=== PATIENT | male | born 1950 | race Caucasian/White ===

== ENCOUNTER → 2016-08-22 | Outpatient (CLI) | payer BC ==
[2012-10-25 16:15] VITALS: BP 129/75
[~2016-08-22] MED LIST: ATORVASTATIN CA40 MG PO; FENOFIBRATE48 MG PO; FISH OIL500 MG; GLUCOSAMINE & C1 CA1 PO; HUMULIN R100 U/ML SQ; LANTUS100 U/ML SQ; LIPITOR 40MG TA40 MG PO; LISINOPRIL2.5 MG PO; METFORMIN ER500 MG PO; METFORMIN500 MG PO; NOVOLOG FLEX100 U/ML SQ; PRECOSE PO; PRECOSE100 M1 PO; RANITIDINE HCL150 MG PO; SUTENT PO; TRESIBA FL200 UNIT/1 SQ; TRICOR48 MG PO; ZETIA 10MG TAB10 MG PO
== END ==
LOC: RAD 15:47
DX: R10.9 Unspecified abdominal pain (principal)

== ENCOUNTER → 2016-10-24 | Outpatient (CLI) | payer BC ==
[2012-10-25 16:15] VITALS: BP 129/75
== END ==
LOC: LAB 06:26
DX: E11.9 Type 2 diabetes mellitus without complications (principal); E78.2 Mixed hyperlipidemia; D48.1 Neoplasm of uncertain behavior of connective and other soft tissue; N28.9 Disorder of kidney and ureter, unspecified

== ENCOUNTER 2016-11-19 14:34 | Emergency (ER) | payer BC ==
[~2016-11-19] VITALS: Ht 177.8 cm; Wt 88.6 kg
[~2016-11-19 14:34] MED LIST changes: -ATORVASTATIN CA40 MG PO; -FENOFIBRATE48 MG PO; -LISINOPRIL2.5 MG PO; -METFORMIN ER500 MG PO; -NOVOLOG FLEX100 U/ML SQ; -PRECOSE PO; -RANITIDINE HCL150 MG PO; -SUTENT PO; -TRESIBA FL200 UNIT/1 SQ
[2016-11-19] MEDS ORDERED: SUTENT PO (14:42)
[2016-11-19] MEDS ORDERED: LISINOPRIL2.5 MG PO (14:42)
[2016-11-19] MEDS ORDERED: NOVOLOG FLEX100 U/ML SQ (14:42)
[2016-11-19] MEDS ORDERED: PRECOSE PO (14:42)
[2016-11-19] MEDS ORDERED: ATORVASTATIN CA40 MG PO (14:42)
[2016-11-19] MEDS ORDERED: METFORMIN ER500 MG PO (14:43)
[2016-11-19] MEDS ORDERED: TRESIBA FL200 UNIT/1 SQ (14:43)
[2016-11-19] MEDS ORDERED: FENOFIBRATE48 MG PO (14:43)
[2016-11-19] MEDS ORDERED: RANITIDINE HCL150 MG PO (14:43)
[2016-11-19 17:13] VITALS: BP 164/88
== END 2016-11-19 17:14 | disposition home or self-care (01) ==
LOC: ED 14:34
DX: J06.9 Acute upper respiratory infection, unspecified (principal); B97.89 Other viral agents as the cause of diseases classified elsewhere; E11.9 Type 2 diabetes mellitus without complications; Z79.4 Long term (current) use of insulin; J30.2 Other seasonal allergic rhinitis; Z85.09 Personal history of malignant neoplasm of other digestive organs

== ENCOUNTER → 2017-01-07 | Outpatient (REF) ==
[~2017-01-07] MED LIST changes: +ATORVASTATIN CA40 MG PO; +FENOFIBRATE48 MG PO; +LISINOPRIL2.5 MG PO; +METFORMIN ER500 MG PO; +NOVOLOG FLEX100 U/ML SQ; +PRECOSE PO; +RANITIDINE HCL150 MG PO; +SUTENT PO; +TRESIBA FL200 UNIT/1 SQ
== END ==
LOC: LAB 10:32
DX: C49.A3 Gastrointestinal stromal tumor of small intestine (principal)

== ENCOUNTER → 2017-01-21 | Outpatient (REF) | LOC: LAB 10:29 | DX: E11.9 Type 2 diabetes mellitus without complications (principal); D48.1 Neoplasm of uncertain behavior of connective and other soft tissue ==

== ENCOUNTER 2017-01-27 23:09 | Emergency (ER) | payer BC ==
[~2017-01-27] VITALS: Ht 177.8 cm; Wt 81.8 kg
[2017-01-28] MEDS ORDERED: ZOFRAN ODT4 MG PO (00:37)
[2017-01-28] MEDS ORDERED: STIVARGA40 MG PO (00:38)
[2017-01-28] MEDS ORDERED: ZOFRAN4 M2 PO (00:39)
[2017-01-28] MEDS ORDERED: PRECOSE PO ×2 (00:40→00:41)
[2017-01-28] MEDS ORDERED: TRESIBA FL200 UNIT/1 SQ (00:41)
[2017-01-28] MEDS ORDERED: GLUCOPHAGE XR500 M2 PO (00:42)
[2017-01-28] MEDS ORDERED: ZANTAC 7575 M1 PO (00:42)
[2017-01-28] MEDS ORDERED: VITAMIN B122500 MC1 PO (00:43)
[2017-01-28] MEDS ORDERED: IRON 100 PLUS 21 TAB PO (00:44)
[2017-01-28] MEDS ORDERED: NOVOLOG FLEX100 U/ML SC (00:48)
[2017-01-28] MEDS ORDERED: NOVOLOG FLEX100 U/ML SQ (00:51)
[2017-01-28] MEDS ORDERED: OMEGA 3-6-9 CO400 MG PO (00:52)
[2017-01-28] MEDS ORDERED: LIPITOR 40MG TA40 MG PO (00:56)
[2017-01-28] MEDS ORDERED: C-500500 M1 PO (00:56)
[2017-01-28] MEDS ORDERED: ZESTRIL5 M1 PO (00:56)
[2017-01-28] MEDS ORDERED: TRICOR48 MG PO (00:56)
[2017-01-28] MEDS ORDERED: CENTRUM SILVER1 EACH PO (00:57)
[2017-01-28] MEDS ORDERED: GLUCOSAMINE &1 EACH PO (00:57)
[2017-01-28] MEDS ORDERED: PERCOCET 325 MG1 TA2 PO (01:32)
[2017-01-28 01:58] VITALS: BP 164/98
== END 2017-01-28 01:58 | disposition home or self-care (01) ==
LOC: ED 23:09
DX: C49.A9 Gastrointestinal stromal tumor of other sites (principal); C78.7 Secondary malignant neoplasm of liver and intrahepatic bile duct; I10 Essential (primary) hypertension; E11.9 Type 2 diabetes mellitus without complications; K21.9 Gastro-esophageal reflux disease without esophagitis; K44.9 Diaphragmatic hernia without obstruction or gangrene; Z79.4 Long term (current) use of insulin
CPT/HCPCS: J2270; J2405; J7030; Q9967

== ENCOUNTER → 2017-01-28 | Outpatient (CLI) | payer BC ==
[~2017-01-28] VITALS: Ht 177.8 cm; Wt 83.2 kg
[~2017-01-28] MED LIST changes: +C-500500 M1 PO; +CENTRUM SILVER1 EACH PO; +GLUCOPHAGE XR500 M2 PO; +GLUCOSAMINE &1 EACH PO; +IRON 100 PLUS 21 TAB PO; +NOVOLOG FLEX100 U/ML SC; +OMEGA 3-6-9 CO400 MG PO; +PERCOCET 325 MG1 TA2 PO; +STIVARGA40 MG PO; +VITAMIN B122500 MC1 PO; +ZANTAC 7575 M1 PO; +ZESTRIL5 M1 PO; +ZOFRAN ODT4 MG PO; +ZOFRAN4 M2 PO
[2017-01-28 15:49] VITALS: BP 132/81
[2017-01-28 16:27] VITALS: BP 109/71
== END ==
LOC: AMSURD 15:40
DX: C49.A9 Gastrointestinal stromal tumor of other sites (principal)
CPT/HCPCS: J2270

== ENCOUNTER 2017-04-01 04:42 | Emergency (ER) | payer BC ==
[~2017-04-01] VITALS: Ht 177.8 cm; Wt 81.8 kg
[2017-04-01] MEDS ORDERED: WELLBUTRIN SR150 M3 PO (05:04)
[2017-04-01] MEDS ORDERED: PRINIVIL20 M1 PO (05:08)
[2017-04-01] MEDS ORDERED: MIRALAX17 GM PO (05:09)
[2017-04-01] MEDS ORDERED: SENNA8.6 M1 PO (05:10)
[2017-04-01] MEDS ORDERED: ZANTAC150 M1 PO (05:10)
[2017-04-01 06:18] LABS: HEMOGLOBIN 9.7 g/dL (13.5-18.0); MEAN CELL VOLUME 82 fl (78-100); MEAN CORPUSCULAR HEMOGLOBIN 25 pg (27-31); MEAN CORPUSCULAR HGB CONC 30 g/dL (33-37); MEAN PLATELET VOLUME 10.4 fl (7.4-10.4); PLATELET COUNT 452 K/mm3 (130-400); RED BLOOD COUNT 3.92 M/mm3 (4.20-5.60); RED CELL DISTRIBUTION WIDTH 18.3 % (11.5-14.5)
[2017-04-01 06:30] LABS: WHITE BLOOD COUNT 29.3 K/mm3 (4.8-10.8)
[2017-04-01 06:39] LABS: ALBUMIN 3.5 g/dL (3.5-5.0); BUN/CREATININE RATIO 15.6 (6.0-26.0); CALCIUM 9.7 mg/dL (8.4-10.2); TOTAL BILIRUBIN 0.8 mg/dL (0.2-1.3)
[2017-04-01 06:43] LABS: BAND 5 % (0-10)
[2017-04-01 06:44] LABS: LYMPHOCYTE 2 % (20-51); MONOCYTE 9 % (3-10); NEUTROPHILS 84 % (42-75)
[2017-04-01 06:45] LABS: CKMB ISOENZYME 0.1 ng/mL (0.6-3.5); TROPONIN-I < 0.03 ng/mL (0.00-0.06)
[2017-04-01 07:46] LABS: URINE APPEARANCE CLEAR; URINE BILIRUBIN NEGATIVE (NEGATIVE); URINE BLOOD NEGATIVE (NEGATIVE); URINE COLOR YELLOW; URINE GLUCOSE 50 mg/dL mg/dL (NEGATIVE); URINE KETONE NEGATIVE (NEGATIVE); URINE LEUKOCYTE ESTERASE TRACE (NEGATIVE); URINE MUCUS PRESENT (NOT PRESENT); URINE NITRATE NEGATIVE (NEGATIVE); URINE PROTEIN(semi-quant) 3+ mg/dL (NEGATIVE); URINE UROBILINOGEN NORMAL (NORMAL)
[2017-04-01 12:51] LABS: HEMOGLOBIN 9.2 g/dL (13.5-18.0); MEAN CELL VOLUME 82 fl (78-100); MEAN CORPUSCULAR HEMOGLOBIN 24 pg (27-31); MEAN CORPUSCULAR HGB CONC 30 g/dL (33-37); MEAN PLATELET VOLUME 10.6 fl (7.4-10.4); PLATELET COUNT 451 K/mm3 (130-400); RED CELL DISTRIBUTION WIDTH 18.4 % (11.5-14.5)
[2017-04-01 13:09] LABS: BAND 3 % (0-10); LYMPHOCYTE 5 % (20-51); MONOCYTE 11 % (3-10); NEUTROPHILS 81 % (42-75); WHITE BLOOD COUNT 30.7 K/mm3 (4.8-10.8)
[2017-04-01 13:12] LABS: MICROCYTOSIS 1+; OVALOCYTES 1+
[2017-04-01] MEDS ORDERED: LEVAQUIN 5500 MG/TA1 PO (14:05)
[2017-04-01 14:23] VITALS: BP 138/79
== END 2017-04-01 14:24 | disposition home or self-care (01) ==
LOC: ED 04:42
PROVIDERS: Nurse Practitioner Family; Physician Assistant
DX: D72.829 Elevated white blood cell count, unspecified (principal); C49.A0 Gastrointestinal stromal tumor, unspecified site; R06.2 Wheezing; I10 Essential (primary) hypertension; K44.9 Diaphragmatic hernia without obstruction or gangrene; Z87.01 Personal history of pneumonia (recurrent); R50.9 Fever, unspecified; R11.2 Nausea with vomiting, unspecified; C78.6 Secondary malignant neoplasm of retroperitoneum and peritoneum; C78.7 Secondary malignant neoplasm of liver and intrahepatic bile duct
CPT/HCPCS: J1644; J2405; J7030; Q9967

== ENCOUNTER → 2017-05-15 | Outpatient (CLI) | payer BC ==
[~2017-05-15] MED LIST changes: +CONSTULOSE10 GM/151 PO; +LEVAQUIN 5500 MG/TA1 PO; +MIRALAX17 GM PO; +PRINIVIL20 M1 PO; +SENNA8.6 M1 PO; +WELLBUTRIN SR150 M3 PO; +ZANTAC150 M1 PO
[2017-05-15 14:47] LABS: HEMATOCRIT 24.4 % (42.0-52.0)
[2017-05-15 16:17] LABS: HEMOGLOBIN 6.8 g/dL (13.5-18.0)
== END ==
LOC: AMSURD 14:06
PROVIDERS: Internal Medicine Hematology & Oncology
DX: D64.81 Anemia due to antineoplastic chemotherapy (principal); C49.A3 Gastrointestinal stromal tumor of small intestine

== ENCOUNTER → 2017-05-16 | Outpatient (CLI) | payer BC ==
[~2017-05-16] VITALS: Ht 180.3 cm; Wt 82.3 kg
[2017-05-16] VITALS (26 sets, daily range): BP systolic 122–149; BP diastolic 56–84
--- NOTE | 2017-05-16 10:59 | NUR ---
Pt states that he typically has fluctuating and elevated temperatures from the cancer. Pt's oncologist is aware of this. Temperature has increased 1 degree F since arrival and pt states that he feels ok. Continuing to monitor pt. No other complaints. Upon going over paperwork at initiation of blood work, found another page of orders for the Benadryl and Tylenol, so this given right after initiation of blood product.
--- NOTE | 2017-05-16 11:13 | NUR ---
Temperature taken again and up to 101.1 degrees F. Pt has no other complaints at this time. Blood disconnected and Port-a-cath flushed with NS. Dr. Jimenez notified and no further orders besides to continue transfusion reaction protocol. Pt resting in bed, nurse remains in room.
--- NOTE | 2017-05-16 11:41 | NUR ---
Pt continues resting in bed, states that he feels warm but no other complaints. Denies SOB or itching. No crackles noted in lungs. Pt notified that UA is needed when he feels like he needs to urinate. Family and pt educated on current procedures, and laboratory has been notified.
--- NOTE | 2017-05-16 11:43 | NUR ---
Lab in room to draw blood from pt.
--- NOTE | 2017-05-16 11:55 | NUR ---
Lunch tray provided.
--- NOTE | 2017-05-16 12:26 | NUR ---
UA obtained and send to lab.
--- NOTE | 2017-05-16 12:42 | NUR ---
Per lab, pathologist said pt can receive second unit of PRBCs whenever pt is ready. Continuing to monitor vital signs at this time. Temperature has returned to same value as upon arrival. Pt continues to deny other signs of a transfusion reaction. Resting in bed, call light in reach, no other needs or concerns at this time. Family remains in room with pt.
--- NOTE | 2017-05-16 14:09 | NUR ---
Pt's vital signs have been stable during the second unit so far. Pt denies any needs or concerns, and denies itching, shortness of breath, or other signs of a transfusion reaction. Infusion rate increased to 75 mL/hour. Family in room at this time.
--- NOTE | 2017-05-16 14:37 | NUR ---
Vital signs continue to be stable. Pt has no complaints at this time. Family in room, call light in reach, pt watching TV.
--- NOTE | 2017-05-16 15:01 | NUR ---
Pt has no complaints at this time. Vital signs remain stable, pt denies itching, SOB or other complaints. Resting in bed, family in room. Infusion rate increased to 110 mL/hour.
--- NOTE | 2017-05-16 18:00 | NUR ---
Lab in room with pt to draw H&H 1 hour post transfusion.
[2017-05-16 18:18] LABS: HEMATOCRIT 23.1 % (42.0-52.0); HEMOGLOBIN 6.7 g/dL (13.5-18.0)
--- NOTE | 2017-05-16 18:31 | NUR ---
H&H results discussed with pt and family. Verbalizes understanding of symptoms to look for at home. Pt states that he feels like his temperature is increasing as it does at home in the evenings. Dr. Jimenez aware and no further orders at this time. Pt denies any other complaints and requests that Port-a-cath remain accessed at this time. Pt aware that port can only remain accessed for 1 week. Pt ambulates out of facility with family to POV, gait steady.
== END ==
LOC: AMSURD 09:33
PROVIDERS: Internal Medicine Hematology & Oncology
DX: D64.81 Anemia due to antineoplastic chemotherapy (principal); C49.A3 Gastrointestinal stromal tumor of small intestine
CPT/HCPCS: J7030

== ENCOUNTER → 2017-05-19 | Outpatient (CLI) | payer BC ==
[2017-05-18 18:18] VITALS: BP 130/76
[2017-05-19 09:12] LABS: HEMATOCRIT 29.1 % (42.0-52.0); HEMOGLOBIN 8.4 g/dL (13.5-18.0)
[2017-05-19 09:55] LABS: MEAN CELL VOLUME 83 fl (78-100); MEAN CORPUSCULAR HEMOGLOBIN 24 pg (27-31); MEAN PLATELET VOLUME 9.5 fl (7.4-10.4); PLATELET COUNT 477 K/mm3 (130-400); RED BLOOD COUNT 3.47 M/mm3 (4.20-5.60); RED CELL DISTRIBUTION WIDTH 18.6 % (11.5-14.5); WHITE BLOOD COUNT 15.2 K/mm3 (4.8-10.8)
[2017-05-19 10:10] LABS: MEAN CORPUSCULAR HGB CONC 29 g/dL (33-37)
[2017-05-19 10:23] LABS: LYMPHOCYTE 6 % (20-51); MICROCYTOSIS 1+; MONOCYTE 11 % (3-10); NEUTROPHILS 74 % (42-75); OVALOCYTES 1+
== END ==
LOC: LAB 08:54
PROVIDERS: Family Medicine
DX: C49.A4 Gastrointestinal stromal tumor of large intestine (principal)

== ENCOUNTER → 2017-06-04 | Outpatient (CLI) | payer BC ==
[2017-05-18 18:18] VITALS: BP 130/76
[2017-06-04 15:26] LABS: HEMOGLOBIN 6.5 g/dL (13.5-18.0)
== END ==
LOC: LAB 14:58
PROVIDERS: Internal Medicine Hematology & Oncology
DX: D64.9 Anemia, unspecified (principal)

== ENCOUNTER → 2017-06-05 | Outpatient (CLI) | payer BC ==
[~2017-06-05] VITALS: Ht 180.3 cm; Wt 79.1 kg
[2017-06-05] VITALS (11 sets, daily range): BP systolic 112–137; BP diastolic 65–86
[~2017-06-05] MED LIST changes: +MAPAP500 M2 PO
== END | disposition still patient (30) ==
LOC: AMSURD 09:04 → EDSTATUS 13:46
DX: D64.9 Anemia, unspecified (principal)
CPT/HCPCS: J1644; J7050; P9016

== ENCOUNTER 2017-06-11 10:07 | Outpatient (RCR) | payer BC ==
[~2017-06-11] VITALS: Ht 180.3 cm; Wt 79.1 kg
[~2017-06-11 10:07] MED LIST changes: -MAPAP500 M2 PO
[2017-06-11 10:15] VITALS: BP 122/69
[2017-06-11 11:08] LABS: HEMATOCRIT 25.6 % (42.0-52.0); MEAN PLATELET VOLUME 9.2 fl (7.4-10.4); RED BLOOD COUNT 3.05 M/mm3 (4.20-5.60); RED CELL DISTRIBUTION WIDTH 18.3 % (11.5-14.5); WHITE BLOOD COUNT 13.1 K/mm3 (4.8-10.8)
[2017-06-11 11:10] LABS: HEMOGLOBIN 7.3 g/dL (13.5-18.0)
[2017-06-11] MEDS ORDERED: MAPAP500 M2 PO (11:38)
[2017-06-11 11:45] VITALS: BP 109/68
--- NOTE | 2017-06-11 12:46 | NUR ---
THIS PATIENT ARRIVES FOR NULICET INFUSION, PORT IS ACCESSED EASILY BUT WITH SIGNIFICANT EFFORT THERE IS NOT ADEQUATE BLOOD RETURN FOR A LAB SPEC, PERIPHERAL VEIN ACCESSED FOR CBC, THIS IS TOLERATED WELL, INFUSION COMPLETE, PORT DE-ACCESSED WITH HEPARIN PRIOR TO DE-ACCESS, PATIENT DISMISSED AMBULATORY TO SELF CARE, HE IS AWARE OF CBC RESULT
[2017-06-18 09:22] VITALS: BP 138/76
[2017-06-18 09:38] VITALS: BP 149/76
[2017-06-25 09:52] VITALS: BP 97/53
[2017-06-25 10:53] VITALS: BP 85/46
--- NOTE | 2017-06-25 11:00 | NUR ---
PATIENT APPEARS PALE. UPON ARRIVAL PATIENT REPORTED FEELING WEAK. BP 85/[address] ENRIQUEZ CONSULTED. HE REPORTS PATIENT HAS BEEN TRENDING A LOW BP OF LATE. ORDERS NS BOLUS OVER AN HOUR. PATIENT MAY LEAVE IF BP >100/50. PATIENT NOTIFIED AND AGREES TO FLUIDS.
[2017-06-25 11:13] VITALS: BP 88/46
[2017-06-25 11:44] VITALS: BP 89/52
[2017-06-25 12:13] VITALS: BP 89/54
--- NOTE | 2017-06-25 12:16 | NUR ---
NS BOLUS FINISHED. BP REMAINS LOW AT 89/54. PATIENT DENIES SX. CONTACT DR ENRIQUEZ WHO ALLOWS PATIENT TO LEAVE. HE DOES SUGGEST NURSING STAFF TO CONSIDER FLUID BOLUS AT NEXT IRON INFUSION IF BP LOW AGAIN.
--- NOTE | 2017-07-02 10:10 | NUR ---
BP checked prior to infusion start - Systolic 116. Pt denies any symptoms. HR 111. Will continue to monitor.
[2017-07-02 10:15] VITALS: BP 116/81
--- NOTE | 2017-07-02 10:50 | NUR ---
BP recheck 98/60 w/ pulse 99. Pt watching TV. Denies any symptoms. Sipping on water. at bedside.
--- NOTE | 2017-07-02 11:30 | NUR ---
Port flushed easily w/ 10 ml NS and 500 units Heploc flush after infusion and port deaccessed. BP 106/60. Pt denies any lightheadedness. Dismissed ambulatory w/ steady gait. to transport pt home. Pt is aware that this was his 4th or 4 infusion and states he has an upcoming appt w/
[2017-07-02 11:31] VITALS: BP 106/60
== END 2017-07-02 18:08 | disposition home or self-care (01) ==
LOC: AMSURD 10:07
PROVIDERS: Internal Medicine Hematology & Oncology
DX: D64.9 Anemia, unspecified (principal)
CPT/HCPCS: A4301; J1644; J2916; J7030; J7050

== ENCOUNTER → 2017-06-18 | Outpatient (CLI) | payer BC ==
[2017-06-11 11:45] VITALS: BP 109/68
[~2017-06-18] MED LIST changes: +MAPAP500 M2 PO
== END ==
LOC: RAD 08:44
DX: C49.A9 Gastrointestinal stromal tumor of other sites (principal)
CPT/HCPCS: Q9967

== ENCOUNTER → 2017-06-26 | Outpatient (CLI) | payer BC ==
[2017-06-25 12:13] VITALS: BP 89/54
[2017-06-26 12:51] LABS: HEMATOCRIT 24.7 % (42.0-52.0)
[2017-06-26 15:18] LABS: HEMOGLOBIN 6.9 g/dL (13.5-18.0)
== END ==
LOC: LAB 12:12
PROVIDERS: Internal Medicine Hematology & Oncology
DX: C49.A4 Gastrointestinal stromal tumor of large intestine (principal)

== ENCOUNTER → 2017-06-27 | Outpatient (CLI) | payer BC ==
[2017-06-27] VITALS (8 sets, daily range): BP systolic 117–153; BP diastolic 57–76
[~2017-06-27] VITALS: Ht 180.3 cm; Wt 75.5 kg
== END ==
LOC: AMSURD 09:29
DX: C49.A4 Gastrointestinal stromal tumor of large intestine (principal)
CPT/HCPCS: J1644; J7050

== ENCOUNTER 2017-07-17 09:33 | Outpatient (RCR) | payer BC ==
[~2017-07-17] VITALS: Ht 180.3 cm; Wt 79.1 kg
[2017-07-17 10:00] VITALS: BP 106/54
--- NOTE | 2017-07-17 10:18 | NUR ---
PT REPORTS THAT LATEX CAUSES LOCALIZED RASH, NO ANAPHYLAXIS PER PT PAST HX.
[2017-07-24 10:06] VITALS: BP 117/69
[2017-07-24 10:58] VITALS: BP 109/68
[2017-07-31 10:15] VITALS: BP 115/66
[2017-07-31 11:10] VITALS: BP 127/67
--- NOTE | 2017-07-31 11:28 | NUR ---
Pt leaves via w/c. to transport him home. Bandaid d/i to port site.
[2017-08-07 10:43] VITALS: BP 111/68
[2017-08-07 10:55] VITALS: BP 117/76
--- NOTE | 2017-08-09 18:51 | NUR ---
PT CALLS AT THIS TIME AND STATES HE WILL NO LONGER BE COMING FOR THE ARINESP INJECTIONS HE HAS BEEN DOING SOME RESEARCH AND HAS READ THAT THIS MEDICATION CAN SPEED UP THE PROGRESSION OF TUMORS, HE HAS CHOSEN TO CANCEL HIS OUTPATIENT APPOINTMENT FOR THURSDAY'S ARINESP INJECTION BUT IS GOING TO REMAIN COMING ON FRIDAYS FOR THE IRON INFUSIONS
[2017-08-14 10:01] VITALS: BP 112/69
[2017-08-14 10:48] VITALS: BP 125/70
--- NOTE | 2017-08-14 10:56 | NUR ---
CALL FROM OFFICE REGARDING HGB LEVEL, ORDERS TO DRAW TYPE&CROSS AND ADMINISTER 2UNITS OF PRBC WHEN AVAILABLE, ALSO DC'S THE STOP DATE OF THE IV VENOFER Q WEEKLY AND ORDERS 200MG IV VENOFER Q7DAYS WITH AN INDEFINITE STOP DATE UNTIL FURTHER NOTICE, WILL CONTINUE TO RECEIVE IV VENOFER ON FRIDAYS
[2017-08-21 09:52] VITALS: BP 101/67
[2017-08-21 10:26] VITALS: BP 131/68
--- NOTE | 2017-08-21 10:30 | NUR ---
LAB RESULTS CALLED TO ORDERED, HEIDE NELSON STATES THAT DOES NOT WANT PATIENT TO HAVE A TRANSFUSION TODAY THE "CUTOFF" FOR HGB IS 7.0, PT'S CURRENT HGB 7.3, WILL CALL PT AND NOTIFY HIM THAT HE WILL NOT NEED BLOOD TRANSFUSED TODAY, NO FURTHER ORDERS AT THIS TIME
== END 2017-08-21 18:03 | disposition home or self-care (01) ==
LOC: AMSURD 09:33
DX: R60.9 Edema, unspecified (principal)
CPT/HCPCS: A4212; A4301; J1644; J1756

== ENCOUNTER → 2017-08-07 | Outpatient (CLI) | payer BC ==
[2017-07-31 11:10] VITALS: BP 127/67
[2017-08-07 10:35] LABS: MEAN PLATELET VOLUME 9.3 fl (7.4-10.4); RED CELL DISTRIBUTION WIDTH 19.8 % (11.5-14.5)
[2017-08-07 11:20] LABS: RED BLOOD COUNT 2.29 M/mm3 (4.20-5.60); WHITE BLOOD COUNT 21.7 K/mm3 (4.8-10.8)
[2017-08-07 11:21] LABS: HEMATOCRIT 18.7 % (42.0-52.0); HEMOGLOBIN 4.9 g/dL (13.5-18.0)
[2017-08-08 00:59] LABS: TRANSFERRIN 336 mg/dL (180-329)
== END ==
LOC: EDSTATUS 08:49 → LAB 09:36 → EDSTATUS 09:41
PROVIDERS: Family Medicine
DX: D64.9 Anemia, unspecified (principal); D48.1 Neoplasm of uncertain behavior of connective and other soft tissue; E11.9 Type 2 diabetes mellitus without complications

== ENCOUNTER → 2017-08-14 | Outpatient (CLI) | payer BC ==
[2017-08-14] VITALS (8 sets, daily range): BP systolic 128–145; BP diastolic 68–76
[~2017-08-14] VITALS: Ht 180.3 cm; Wt 75.0 kg
[2017-08-14 09:28] LABS: RED BLOOD COUNT 2.79 M/mm3 (4.20-5.60)
[2017-08-14 09:35] LABS: WHITE BLOOD COUNT 20.2 K/mm3 (4.8-10.8)
[2017-08-14 09:36] LABS: HEMATOCRIT 23.2 % (42.0-52.0); HEMOGLOBIN 6.4 g/dL (13.5-18.0)
== END ==
LOC: LAB 09:24
PROVIDERS: Family Medicine
DX: D64.9 Anemia, unspecified (principal); Z88.2 Allergy status to sulfonamides; Z88.8 Allergy status to other drugs, medicaments and biological substances; Z91.040 Latex allergy status
CPT/HCPCS: J1644; J7050; P9016

== ENCOUNTER → 2017-08-20 | Outpatient (CLI) | payer BC ==
[2017-08-14 18:15] VITALS: BP 128/76
== END ==
LOC: LAB 10:16
DX: D64.9 Anemia, unspecified (principal); E11.9 Type 2 diabetes mellitus without complications; R60.9 Edema, unspecified; Z88.2 Allergy status to sulfonamides; Z88.8 Allergy status to other drugs, medicaments and biological substances